=== PATIENT | female | born 1990 | race Caucasian/White ===

== ENCOUNTER 2018-03-08 12:59 | Inpatient (IN) | payer OTHER ==
[~2018-03-08] VITALS: Ht 162.6 cm; Wt 72.7 kg
[2018-03-19] VITALS (63 sets, daily range): BP systolic 87–143; BP diastolic 50–84; PULSE 63–118; TEMP 98.1
[2018-03-19] MEDS ORDERED: PRENATAL FORMU1 EAC3 PO (07:32)
[2018-03-19] MEDS ORDERED: OSCAL 500 TAB500 MG (07:33)
[2018-03-19] MEDS ORDERED: ZANTAC 150MG T150 MG PO (07:33)
[2018-03-19] MEDS ORDERED: NATURAL IRON65 MG (07:33)
[2018-03-19 08:38] LABS: BASO % 0.4 % (0.0-2.0); EOS # 0.3 (0.0-0.7); EOS % 3.6 % (0-4.0); GRAN # 6.6 (1.4-6.5); GRAN % 70.5 % (42.2-75.2); HEMOGLOBIN 12.1 g/dl (12.5-16.0); LYMPH # 1.9 (1.2-3.4); LYMPH % 20.2 % (20.0-51.0); MEAN CELL VOLUME 87 fl (80.0-100.0); MEAN CORPUSCULAR HEMOGLOBIN 31 pg (27.0-31.0); MEAN CORPUSCULAR HGB CONC 36 g/dl (33.0-37.0); MEAN PLATELET VOLUME 10.9 fl (7.4-10.4); MONO # 0.4 (0.1-0.6); MONO % 4.4 % (1.7-9.3); PLATELET COUNT 178 K/mm3 (130-400); RED BLOOD COUNT 3.91 M/mm3 (4.10-5.30); REDCELL DISTRIBUTION WIDTH-CV 12.9 % (11.5-14.5)
[2018-03-19 08:41] LABS: HEMATOCRIT 33.9 % (37.0-47.0)
[2018-03-19] MEDS ORDERED: PERCOCET 325 MG1 TA2 PO (10:00)
[2018-03-19] MEDS ORDERED: MOTRIN 800800 MG/TAB PO (10:00)
[2018-03-20 04:00] VITALS: BP 101/62; PULSE 72; TEMP 97.4
[2018-03-20 07:30] VITALS: BP 104/64; PULSE 65; TEMP 97.6
[2018-03-20] MEDS ORDERED: NEWMANS TOP (10:56)
[2018-03-20 12:55] VITALS: BP 91/51; PULSE 75; TEMP 97.9
[2018-03-20 16:28] VITALS: BP 92/58; PULSE 69; TEMP 97.7
[2018-03-20 20:30] VITALS: BP 118/66; PULSE 70; TEMP 97.3
[2018-03-21 07:58] VITALS: BP 109/70; PULSE 70; TEMP 98.3
== END 2018-03-21 12:20 | disposition home or self-care (01) | DRG 775 ==
LOC: LDR 03-19 07:13 → OB 03-19 07:13 → LDR 03-19 07:30 → OB 03-20 00:40 → EDSTATUS 03-24 07:30 → LDRO 03-24 12:59
PROVIDERS: Obstetrics & Gynecology
PROC: 10E0XZZ Delivery of Products of Conception, External Approach (ICD-10-PCS; principal; 2018-03-19)
PROC: 0KQM0ZZ Repair Perineum Muscle, Open Approach (ICD-10-PCS; 2018-03-19)
PROC: 0UQM0ZZ Repair Vulva, Open Approach (ICD-10-PCS; 2018-03-19)
PROC: 3E033VJ Introduction of Other Hormone into Peripheral Vein, Percutaneous Approach (ICD-10-PCS; 2018-03-19)
PROC: 10907ZC Drainage of Amniotic Fluid, Therapeutic from Products of Conception, Via Natural or Artificial Opening (ICD-10-PCS; 2018-03-19)
DX: O36.5930 Maternal care for other known or suspected poor fetal growth, third trimester, not applicable or unspecified (principal); O36.0930 Maternal care for other rhesus isoimmunization, third trimester, not applicable or unspecified; Z3A.39 39 weeks gestation of pregnancy; Z37.0 Single live birth; O70.1 Second degree perineal laceration during delivery
CPT/HCPCS: J2405; J2550; J2590; J2791; J7120

== ENCOUNTER 2020-04-03 03:12 | Inpatient (IN) | payer OTHER ==
[2020-04-03] VITALS (25 sets, daily range): BP systolic 83–131; BP diastolic 42–84; PULSE 77–120; TEMP 97.7–98
[~2020-04-03] VITALS: Ht 162.6 cm; Wt 75.0 kg
[~2020-04-03 03:12] MED LIST: MOTRIN 800800 MG/TAB PO; NATURAL IRON65 MG; NEWMANS TOP; OSCAL 500 TAB500 MG; PERCOCET 325 MG1 TA2 PO; PRENATAL FORMU1 EAC3 PO; ZANTAC 150MG T150 MG PO
[2020-04-03 04:17] LABS: BASO # 0.1 (0.0-0.2); BASO % 0.4 % (0.0-2.0); EOS # 0.2 (0.0-0.7); EOS % 1.9 % (0-4.0); GRAN # 8.8 (1.4-6.5); GRAN % 74.2 % (42.2-75.2); HEMOGLOBIN 10.9 g/dl (12.5-16.0); LYMPH # 2.2 (1.2-3.4); LYMPH % 18.3 % (20.0-51.0); MEAN CELL VOLUME 83 fl (80.0-100.0); MEAN CORPUSCULAR HEMOGLOBIN 28 pg (27.0-31.0); MEAN CORPUSCULAR HGB CONC 34 g/dl (33.0-37.0); MONO # 0.6 (0.1-0.6); MONO % 4.9 % (1.7-9.3); PLATELET COUNT 163 K/mm3 (130-400); RED BLOOD COUNT 3.89 M/mm3 (4.10-5.30); REDCELL DISTRIBUTION WIDTH-CV 12.9 % (11.5-14.5)
[2020-04-03 04:22] LABS: HEMATOCRIT 32.4 % (37.0-47.0)
[2020-04-03] MEDS ORDERED: MOTRIN 800800 MG/TAB PO (05:50)
[2020-04-04 07:30] VITALS: BP 95/63; PULSE 72; TEMP 98.2
== END 2020-04-04 13:00 | disposition home or self-care (01) | DRG 807 ==
LOC: LDRO 03:12 → LDR 03:25 → OB 09:45
PROVIDERS: ADMIT Obstetrics & Gynecology
PROC: 10D07Z6 Extraction of Products of Conception, Vacuum, Via Natural or Artificial Opening (ICD-10-PCS; principal; 2020-04-03)
DX: O26.893 Other specified pregnancy related conditions, third trimester (principal); Z37.0 Single live birth; Z67.91 Unspecified blood type, Rh negative; Z3A.38 38 weeks gestation of pregnancy; O62.0 Primary inadequate contractions; O76 Abnormality in fetal heart rate and rhythm complicating labor and delivery; O77.0 Labor and delivery complicated by meconium in amniotic fluid
CPT/HCPCS: J2405; J2590; J2795; J7120

== ENCOUNTER 2021-09-22 06:24 | Inpatient (IN) | payer SELFPAY ==
[~2021-09-22] VITALS: Ht 162.6 cm; Wt 74.5 kg
[2021-09-22] VITALS (44 sets, daily range): BP systolic 93–135; BP diastolic 50–88; PULSE 58–113; TEMP 97.3–98.2
--- NOTE | 2021-09-22 06:30 | NUR ---
0630 Pt ambulatory onto unit. FHR monitor/TOCO applied. Pt denies any regular contractions, vaginal bleeding, decreased movement, or leaking of fluid. Induction of labor and plan of care discussed with patient. Patient verbalizes understanding. 0700 IV started per Bhargav Dozier in left wrist. Lactated Ringers infusing. Pt instructed to call when needing to use bathroom. 0713 Pitocin started at 2mu/hr per protocol.
[2021-09-22] MEDS ORDERED: TUMS500 MG (06:48)
[2021-09-22 07:03] LABS: BASO % 0.5 % (0.0-2.0); EOS # 0.2 K/mm3 (0.0-0.7); EOS % 2.9 % (0-4.0); GRAN # 5.6 K/mm3 (1.4-6.5); GRAN % 69.3 % (42.2-75.2); HEMOGLOBIN 10.7 g/dl (12.5-16.0); LYMPH # 1.8 K/mm3 (1.2-3.4); LYMPH % 21.8 % (20.0-51.0); MEAN CELL VOLUME 84 fl (80.0-100.0); MEAN CORPUSCULAR HEMOGLOBIN 29 pg (27.0-31.0); MEAN CORPUSCULAR HGB CONC 35 g/dl (33.0-37.0); MEAN PLATELET VOLUME 10.8 fl (7.4-10.4); MONO # 0.4 K/mm3 (0.1-0.6); MONO % 4.8 % (1.7-9.3); PLATELET COUNT 174 K/mm3 (130-400); RED BLOOD COUNT 3.68 M/mm3 (4.10-5.30); REDCELL DISTRIBUTION WIDTH-CV 13.2 % (11.5-14.5)
[2021-09-22 07:04] LABS: HEMATOCRIT 30.9 % (37.0-47.0)
--- NOTE | 2021-09-22 07:50 | NUR ---
0750 Dr. Arita on unit reviewing FHR strip. SVE per physician /-2. [address] Arita. Clear fluid noted. Plan of care discussed. Pt verbalizes understanding.
--- NOTE | 2021-09-22 10:14 | NUR ---
Patient sitting up for epidural. RN at bedside. Plan of care discussed with pt. Pt verbalizes understanding.
--- NOTE | 2021-09-22 14:44 | NUR ---
Leonel COWAN called to ask patient's epidural dosage to be decreased. SENIOR MANAGEMENT CONSULTANT on his way to unit and will follow up with patient.
--- NOTE | 2021-09-22 15:46 | NUR ---
1546 Patient's SVE per this RN 0. Dr Arita notified. 1600 Dr. Arita on unit. Reviewing FHR strip and discussing plan of care with patient. 1611 Spontaenous vaginal delivery of viable female infant. Nuchal cord x1. Cord clamped and cut by Dr. Arita. Infant placed on mother's chest. Bhargav Ramirez takes over care of . Cord blood obtained and sent to lab. 1613 Spontaneous delivery of placenta. Pitocin bolus started per protocol. Fundal massage performed per this RN. Fundus firm and midline. Scant amt of bleeding noted. Patient cleaned. Ice pack placed on perineum. Plan of care discussed. Pt verbalizes understanding.
[2021-09-22] MEDS ORDERED: MOTRIN 800800 MG/TAB PO (17:01)
--- NOTE | 2021-09-22 18:45 | NUR ---
Pt sitting up, snacking, . Reports "my L leg is still not moving well"
--- NOTE | 2021-09-22 19:25 | NUR ---
stands a bedside with assist. L knee/leg not weight bearing. To bathroom with assist. Voids large amount, performs own pericare. To wheelchair without assistance. Tracnferred to room via wheelchair. Transfers self to bed. Pt and spouse instructed/reminded that pt is not to get out of bed without staff assistance.Verbalizes understanding
[2021-09-23] VITALS: BP 87/55; PULSE 57; TEMP 98
[2021-09-23 07:40] VITALS: BP 103/69; PULSE 68; TEMP 98
[2021-09-23 12:16] VITALS: BP 115/64; PULSE 72; TEMP 98
[2021-09-23 16:30] VITALS: BP 125/78; PULSE 80; TEMP 98
--- NOTE | 2021-09-23 17:30 | NUR ---
PATIENT REFUSED MMR
== END 2021-09-23 17:30 | disposition home or self-care (01) | DRG 807 ==
LOC: LDR 06:24 → OB 06:24 → LDR 06:25 → OB 19:30
PROVIDERS: ADMIT Obstetrics & Gynecology
PROC: 10E0XZZ Delivery of Products of Conception, External Approach (ICD-10-PCS; principal; 2021-09-22)
PROC: 3E033VJ Introduction of Other Hormone into Peripheral Vein, Percutaneous Approach (ICD-10-PCS; 2021-09-22)
PROC: 10907ZC Drainage of Amniotic Fluid, Therapeutic from Products of Conception, Via Natural or Artificial Opening (ICD-10-PCS; 2021-09-22)
DX: O36.5930 Maternal care for other known or suspected poor fetal growth, third trimester, not applicable or unspecified (principal); Z37.0 Single live birth; O69.1XX0 Labor and delivery complicated by cord around neck, with compression, not applicable or unspecified; O26.893 Other specified pregnancy related conditions, third trimester; Z67.11 Type A blood, Rh negative; Z3A.38 38 weeks gestation of pregnancy; Z23 Encounter for immunization
CPT/HCPCS: J1200; J2405; J2590; J2795; J7120